=== PATIENT | female | born 1970 | race Caucasian/White ===

== ENCOUNTER 2017-04-08 14:01 | Emergency (ER) | payer BC ==
--- NOTE | 2017-04-08 14:33 | RAD ---
CHEST PA AND LATERAL: History: 46-year-old female with chest pain, right lower extremity swelling, chest tightness. Comparison: 03-20-17 FINDINGS: Heart size is normal. Old granuloma calcification changes are noted. No confluent pneumonia, overt ed kindra, or pleural effusion. IMPRESSION: Old granulomatous disease. No acute intrathoracic disease. Stable from prior study. POS: [facility]
[2017-04-08 14:44] LABS: #Eosinphils 0.1 thou/uL (0.0-0.7); #Lymphocytes 1.9 thou/uL (1.20-3.40); #Monocytes 0.6 thou/uL (0.11-0.59); #Neutrophils 4.3 thou/uL (1.40-6.50); %Basophils 0.6 % (0.0-1.0); %Eosinophils 1.7 % (0.0-10.0); %Lymphocytes 27.5 % (21.0-51.0); %Monocytes 8.6 % (0.0-10.0); %Neutrophils 61.6 % (42.0-75.0); Hemoglobin 11.5 g/dL (12.0-16.0); Mean Corpuscular HGB CONC 32.6 g/dL (32.0-36.0); Mean Platelet Volume 6.8 fL (7.4-10.4); Platelet Count 385 thou/uL (130-400); RBC Distribution Width 12.3 % (11.5-14.5); Red Blood Cell (RBC) Count 3.83 mill/uL (4.20-5.40)
[2017-04-08 15:06] LABS: ALT (SGPT) 12 U/L (8-55); AST (SGOT) 14 U/L (5-34); Alkaline Phosphatase 70 U/L (40-150); Anion Gap 11 mmol/L (10-20); BUN (Urea Nitrogen) 10 mg/dL (7.0-18.7); Bilirubin, Total 0.2 mg/dL (0.2-1.2); CK (CPK) 90 U/L (29-168); Calc. Creatinine Clearance 0 mL/min (70-130); Calcium 8.8 mg/dL (7.8-10.44); Carbon Dioxide 28 mmol/L (22-29); Chloride 105 mmol/L (98-107); Estimated GFR-MDRD Greater than 90; Globulin 2.9 g/dL (2.4-3.5); Glucose 80 mg/dL (70-105); Lipase 36 U/L (8-78); Potassium 3.6 mmol/L (3.5-5.1); Protein, Total 6.9 g/dL (6.0-8.3); Sodium 140 mmol/L (136-145)
[2017-04-08 15:08] LABS: CKMB 0.9 ng/mL (0-6.6); Troponin I Less than 0.010 ng/mL (< 0.028)
--- NOTE | 2017-04-08 15:38 | ULT ---
RIGHT LOWER EXTREMITY VENOUS ULTRASOUND WITH DOPPLER: Date: 04/08/17 HISTORY: Right leg swelling. COMPARISON: None. TECHNIQUE: Nunn scale, color flow, Doppler imaging and spectral waveform analysis performed of the right lower e xtremity deep venous system. FINDINGS: There is compressibility, presence of flow, and augmentation in the common femoral vein, femoral vein , and popliteal vein. There is flow in the greater saphenous vein, profunda vein, and posterior tibia l vein. Enlarged right inguinal lymph node with preserved fatty hilum measuring 2.1 cm in maximum dimension. IMPRESSION: No evidence of thrombus in the right lower extremity deep venous system. POS: [facility]
== END 2017-04-08 15:35 | disposition home or self-care (01) ==
LOC: ERS 14:01
DX: M79.89 Other specified soft tissue disorders (principal); F41.9 Anxiety disorder, unspecified; Z79.899 Other long term (current) drug therapy
CPT/HCPCS: 36415; 71046; 80053; 82553; 83690; 84484; 85025; 85379; 93005

== ENCOUNTER 2017-04-11 15:26 | Outpatient (CLI) | payer BC ==
--- NOTE | 2017-04-11 16:20 | ULT ---
ULTRASOUND PELVIC ULTRASOUND TRANSVAGINAL DOPPLER DUPLEX: 04/11/17 HISTORY: 46-year-old female with "enlarged lymph nodes" in the groin. Pelvic pain. TECHNIQUE: Transabdominal transducer used to evaluate intrapelvic contents using the urinary bladder as an acous tic window. Endovaginal transducer used to visualize intrapelvic contents in greater detail. Color fl ow Doppler and Pulsed Doppler spectral waveform analysis of ovaries. FINDINGS: Uterus: 5.5 x 2.5 x 2 cm. Endometrial stripe: 0.5 cm (6 mm). Right ovary: 2.5 x 2.5 x 1.5 cm. Left ovary: 2.5 x 2 x 1 cm. No uterine leiomyoma is identified. Blood flow is demonstrated in both ovaries. No ovarian cyst (defined as 2 cm or greater) is identified. No free fluid is in the cul-de-sac. IMPRESSION: Normal. jn [] POS: [facility]
== END 2017-04-11 15:27 | disposition home or self-care (01) ==
LOC: ULT 15:26
PROVIDERS: ATTEND Family Medicine
DX: R59.0 Localized enlarged lymph nodes (principal); M79.89 Other specified soft tissue disorders
CPT/HCPCS: 76856

== ENCOUNTER 2017-04-18 08:13 | Outpatient (CLI) | payer BC ==
[2017-04-18] MEDS ORDERED: Iopamidol 370 76% 100 ML VIAL ONE (13:15)
== END 2017-04-18 08:14 | disposition home or self-care (01) ==
LOC: BICCT 08:13
PROVIDERS: ATTEND Family Medicine
DX: M79.89 Other specified soft tissue disorders (principal); R59.0 Localized enlarged lymph nodes
CPT/HCPCS: 74177

== ENCOUNTER 2017-09-20 21:51 | Emergency (ER) | payer BC ==
[2017-09-20 22:15] LABS: Bilirubin Negative (Negative); Blood, Urine Negative (Negative); Clarity CLEAR (Clear); Glucose, Urine (Dipstick) Negative (Negative); Leukocyte Negative (Negative); Nitrite Negative (Negative); Protein, Urine (Dipstick) Negative (Neg-Trace); Specific Gravity, Urine 1.009 (1.002-1.036); Urobilinogen 0.2 mg/dL (0.2-1.0)
[2017-09-20 22:22] LABS: Pregnancy Test - Urine (BHCG) Negative (Negative); Pregu Control Background? CLEAR/WHITE (CLR/WHITE); Pregu Control Bar Appear? YES (CONTROL BAR); Specific Gravity 1.009 (1.002-1.036)
[2017-09-20 22:44] LABS: Hemoglobin 12.1 g/dL (12.0-16.0); Mean Corpuscular HGB CONC 33.8 g/dL (32.0-36.0); Mean Corpuscular Hemoglobin 28.8 pg (27.0-31.0); Mean Corpuscular Volume 85.2 fL (78.0-98.0); Mean Platelet Volume 6.7 fL (7.4-10.4); Platelet Count 312 thou/uL (130-400); RBC Distribution Width 12.4 % (11.5-14.5)
[2017-09-20] MEDS ORDERED: Ondansetron ODT 4 MG TAB ONE (22:54)
[2017-09-20 23:05] LABS: ALT (SGPT) 15 U/L (8-55); AST (SGOT) 19 U/L (5-34); Albumin 3.9 g/dL (3.5-5.0); Alkaline Phosphatase 78 U/L (40-150); Anion Gap 14 mmol/L (10-20); BUN (Urea Nitrogen) 8 mg/dL (7.0-18.7); Bilirubin, Total 0.5 mg/dL (0.2-1.2); Calc. Creatinine Clearance 0 mL/min (70-130); Calcium 8.9 mg/dL (7.8-10.44); Carbon Dioxide 23 mmol/L (22-29); Chloride 101 mmol/L (98-107); Estimated GFR-MDRD 90; Globulin 3.3 g/dL (2.4-3.5); Glucose 101 mg/dL (70-105); Lipase 26 U/L (8-78); Protein, Total 7.2 g/dL (6.0-8.3); Sodium 135 mmol/L (136-145)
[2017-09-20 23:06] LABS: Band 41 % (5-11); Eosinophils 2 % (0-10); Lymphocytes 22 % (21-51); MDiff Complete? YES; Monocytes 23 % (0-10); Neutrophil 10 % (42-75); PLT Morphology Comment Appears Adequate; Reactive Lymphocytes 2 % (0-10); Reflex for Review?? YES; Vacuoles SLIGHT
[2017-09-20 23:09] LABS: CKMB 0.4 ng/mL (0-6.6); Troponin I Less than 0.010 ng/mL (< 0.028)
[2017-09-20 23:11] LABS: Potassium 2.9 mmol/L (3.5-5.1)
[2017-09-21] MEDS ORDERED: Potassium Chloride 20 MEQ TAB ONE (00:12)
[2017-09-21] MEDS ORDERED: cefTRIAXone\\ROCEPHIN 1 GM VIAL ONE (00:12)
[2017-09-21] MEDS ORDERED: Diphenoxylate HCl/Atropine Tablet ONE (00:43)
[2017-09-21] MEDS ORDERED: Promethazine HCl 25 MG/ML VIAL ONE (00:44)
== END 2017-09-21 01:32 | disposition home or self-care (01) ==
LOC: ERS 21:51
DX: E87.6 Hypokalemia (principal); R19.7 Diarrhea, unspecified; R11.2 Nausea with vomiting, unspecified; F41.9 Anxiety disorder, unspecified; Z79.899 Other long term (current) drug therapy
CPT/HCPCS: 80053; 81003; 81025; 82553; 83690; 84484; 85025; 85060; 87045; 87046; 87328; 87329; 87449; 87899; 96361; 96365; 96375; J0696; J2550; Q0162

== ENCOUNTER 2018-02-19 14:36 | Outpatient (CLI) | payer BC | END 2018-02-19 14:37 | disposition home or self-care (01) | LOC: BICMAMMO 14:36 | PROVIDERS: ATTEND Family Medicine | DX: Z12.31 Encounter for screening mammogram for malignant neoplasm of breast (principal); N64.89 Other specified disorders of breast | CPT/HCPCS: 77063; 77067 ==

== ENCOUNTER 2018-03-13 13:56 | Outpatient (CLI) | payer BC | END 2018-03-13 13:57 | disposition home or self-care (01) | LOC: BICMAMMO 13:56 | PROVIDERS: ATTEND Family Medicine | DX: R92.2 Inconclusive mammogram (principal) | CPT/HCPCS: G0279 ==

== ENCOUNTER 2019-03-02 06:36 | Outpatient (CLI) | payer BC ==
--- NOTE | 2019-03-02 07:46 | ULT ---
EXAM: US Abdominal CLINICAL HISTORY: Gastroesophageal reflux disease. COMPARISON: None. FINDINGS: Pancreas: The head of the pancreas has a normal echotexture. The remainder the pancreas is obscured by bowel gas. IVC: Visualized IVC has a normal caliber. Aorta: Visualized aorta has a normal caliber. Liver:Visualized hepatic parenchyma has a normal echotexture. No hepatic masses or intrahepatic bilia ry dilatation. The contour of the hepatic margin is maintained. Right hepatic lobe measures 18.8 cm. Gallbladder: No sonographic evidence of cholelithiasis, gallbladder wall thickening or pericholecysti c fluid. Preciado's sign:Negative CBD: Common bile duct diameter 0.3 cm Portal vein: Patent. Appropriate directional flow. Right kidney: Normal cortical echotexture. No hydronephrosis. Right kidney measuring 5.7 x 11.4 x 4. 2 cm in length. Left kidney: No hydronephrosis . Left kidney measuring 12.0 x 6.5 x 6.0 cm in length. Questionable mass in the midpole the left kid constantine. Spleen: Normal echotexture, measuring 9.6 cm in length IMPRESSION: 1. No hydronephrosis. 2. No sonographic evidence of cholelithiasis or cholecystitis. 3. Questionable left mid pole renal cortical mass. Further evaluation with a renal mass protocol CT i s recommended CODE T Transcribed Date/Time: 03/02/2019 8:48 AM
== END 2019-03-02 06:37 | disposition home or self-care (01) ==
LOC: BICULT 06:36
PROVIDERS: ATTEND Physician Assistant
DX: K21.9 Gastro-esophageal reflux disease without esophagitis (principal); R19.7 Diarrhea, unspecified
CPT/HCPCS: 93975

== ENCOUNTER 2019-03-22 07:59 | Outpatient (CLI) | payer BC ==
--- NOTE | 2019-03-22 10:11 | CT ---
CT ABDOMEN PERFORMED WITH AND WITHOUT CONTRAST ENHANCEMENT: HISTORY: Possible left renal mass noted on recent ultrasound examination. COMPARISON: A 03/02/2019 ultrasound study. FINDINGS: The lung bases are clear. A hiatal hernia is noted. The liver, spleen, pancreas, and gallbladder regions appear unremarkable. Right and left adrenal glands and right and left kidneys are normal in size appearance. The abnormal ity noted on ultrasound is probably just related to some slight lobulation to the mid pole of the le ft kidney. There are no renal calculi. There is no significant periaortic or mesenteric adenopathy. IMPRESSION: 1. Mild hiatal hernia. 2. No evidence of renal mass. POS: [facility]
[2019-03-22] MEDS ORDERED: Iopamidol-370 76% 500 ML 1 ML ONE (15:49)
== END 2019-03-22 08:00 | disposition home or self-care (01) ==
LOC: BICCT 07:59
PROVIDERS: ATTEND Physician Assistant
DX: N28.89 Other specified disorders of kidney and ureter (principal); K44.9 Diaphragmatic hernia without obstruction or gangrene
CPT/HCPCS: 74170; Q9967

== ENCOUNTER 2019-03-26 12:06 | Outpatient (CLI) | payer BC ==
--- NOTE | 2019-03-26 15:09 | NM ---
HEPATOBILIARY SCAN: HISTORY: Gastroesophageal reflux disease without esophagitis. No gallstones on gallbladder ultrasound of 02/14. RADIOPHARMACEUTICAL: 5.3 mCi Technetium 99m-mebrofenin injected intravenously. FINDINGS: There is good tracer extraction by the liver with prompt excretion into the biliary tract and small b owel loops and normal filling of the gallbladder. The calculated gallbladder ejection fraction follo wing an oral fatty meal measures 46%. IMPRESSION: Normal exam. POS: [facility]
== END 2019-03-26 12:07 | disposition home or self-care (01) ==
LOC: NM 12:06
PROVIDERS: ATTEND Physician Assistant
DX: K21.9 Gastro-esophageal reflux disease without esophagitis (principal); R11.0 Nausea; R19.7 Diarrhea, unspecified
CPT/HCPCS: 78227; A9537